=== PATIENT | male | born 1955 | race Caucasian/White ===

== ENCOUNTER 2019-03-23 08:43 | Day surgery (SDC) | payer BC, MEDICARE ==
[2019-03-17 17:48] VITALS: BMI 31.3
[~2019-03-23 08:43] MED LIST: DEXAMETHASONE SOD PHOSPHATE 10 MG/ML 1 ML VIAL IV ONE; LIDOCAINE 1% 20 ML VIAL (10MG/ML) FOR IV START INTRADERMA PRN; ONDANSETRON 4 MG/2 ML VIAL IVP ONE; SCOPOLAMINE 1.5MG/72HR PATCH TRANSDERM ONE
[2019-03-23] MEDS ORDERED: MIDAZOLAM (PF) 2 MG/2 ML VIAL IV ONE (09:15)
[2019-03-23] MEDS: LACTATED RINGERS 1,000 ML IV SCH ×2 (09:35→16:21)
--- NOTE | 2019-03-23 11:23 | P.ANPRN ---
Procedure Note - Anesthesia - Nerve Block Performed Left Adductor Canal Time Out Performed: Yes Date of Procedure: 03/23/19 Procedure Start Time: 09:42 Procedure Stop Time: 09:46 Location of Patient Procedure: PreOp Indication: Acute Post-Operative Pain, Requested by Surgeon Specifically requested for management of pain by DrCorby: Juanito Myers Sedation Type: Sedate with meaningful contact maintained Preparation: Sterile Prep Position: Supine Catheter: None Needle Types: Pajunk Needle Gauge: 20 Ultrasound used to visualize needle placement: Yes Ultrasound used to observe medication spread: Yes (local spread) Injectate: Other (see comment) Adjunct: Epinephrine (see comment for dilution ratio) (0.5% Ropi with 2% lidocaine with epi [id number] 50/50 mixture 15cc total) Blood Aspirated: No Pain Paresthesia on Injection Noted: No Resistance on Injection: Normal Image Stored and Saved: Yes Events: Uneventful and Well Tolerated Left Popliteal Single Time Out Performed: Yes Date of Procedure: 03/23/19 Procedure Start Time: 09:47 Procedure Stop Time: 09:51 Location of Patient Procedure: PreOp Indication: Acute Post-Operative Pain, Requested by Surgeon Specifically requested for management of pain by DrCorby: Juanito Myers Sedation Type: Sedate with meaningful contact maintained Preparation: Sterile Prep Position: Supine Catheter: None Needle Types: Pajunk Needle Gauge: 20 Ultrasound used to visualize needle placement: Yes Ultrasound used to observe medication spread: Yes (local spread) Injectate: Other (see comment) Adjunct: Epinephrine (see comment for dilution ratio) (0.5% Ropi with 2% lidocaine with epi [id number] 50/50 mixture 15cc total) Blood Aspirated: No Pain Paresthesia on Injection Noted: No Resistance on Injection: Normal Image Stored and Saved: Yes Events: Uneventful and Well Tolerated
[2019-03-23] MEDS ORDERED: LIDOCAINE 1% INJ 10MG/ML (20 ML MDV) ONE (11:29)
[2019-03-23] MEDS ORDERED: MIDAZOLAM 2 MG/2 ML VIAL ONE (11:29)
[2019-03-23] MEDS ORDERED: HYDROmorphone (PF) 1 MG/ML ONE (11:29)
[2019-03-23] MEDS ORDERED: ESMOLOL 100 MG/10 ML VIAL ONE (11:29)
[2019-03-23] MEDS ORDERED: SUCCINYLCHOLINE CHLORIDE 100 MG/5 ML SYR IV ONE (11:29)
[2019-03-23] MEDS ORDERED: ROPIVACAINE 5 MG/ML 30 ML VIAL ONE (11:29)
[2019-03-23] MEDS ORDERED: LIDOCAINE 2%-EPI 1:100,000 20 ML VIAL ONE (11:29)
[2019-03-23] MEDS ORDERED: PROPOFOL 10 MG/ML 20 ML VIAL IV ONE (11:29)
[2019-03-23] MEDS ORDERED: fentaNYL (PF) 50 MCG/ML 2 ML AMP ONE (11:29)
[2019-03-23] MEDS ORDERED: LACTATED RINGERS 1,000 ML IV ONE (13:05)
--- NOTE | 2019-03-23 14:47 | XR ---
Limited left ankle HISTORY: Subtalar joint arthrodesis 6 intraoperative C-arm images document the procedure.
--- NOTE | 2019-03-23 14:48 | FL ---
Fluoroscopy HISTORY: Subtalar joint arthrodesis 3 minutes 27 seconds fluoroscopy time supplied to the referring clinician. 6 intraoperative C-arm im ages document the procedure. See dictated report from orthopedic surgery.
[2019-03-23] MEDS ORDERED: HYDROcodone/APAP 5-325MG 1 EACH TAB PO PRN (15:25)
[2019-03-23] MEDS ORDERED: hydrOXYzine PAMOATE 25 MG CAP PO PRN (15:25)
[2019-03-23] MEDS ORDERED: HYDROmorphone 0.5 MG/0.5 ML SYRINGE IVP PRN ×3 (15:25)
[2019-03-23] MEDS ORDERED: SENNOSIDES-DOCUSATE SODIUM 1 EACH TAB PO PRN (15:25)
[2019-03-23] MEDS ORDERED: ONDANSETRON 4 MG/2 ML VIAL IVP PRN (15:25)
[2019-03-23] MEDS: HYDROmorphone 0.5 MG/0.5 ML SYRINGE IVP PRN ×2 (16:07→16:18)
[2019-03-23 17:14] LABS: Basophils % (A) 0 %; Eosinophils % (A) 0 %; HCT 44.4 % (39.0-53.0); HGB 14.9 gm/dL (13.0-17.5); Lymphocytes # (A) 0.7 k/uL (1.0-4.8); Lymphocytes % (A) 8 %; MCH 30.6 pg (25.0-35.0); MCHC 33.7 g/dL (31.0-37.0); MCV 90.9 fL (80.0-100.0); Mean Platelet Volume 6.7; Monocytes # (A) 0.2 k/uL (0-1.0); Monocytes % (A) 2 %; Neutrophils # (A) 7.9 k/uL (1.3-7.7); Neutrophils % (A) 89 %; Platelet Count 221 k/uL (150-450); RBC 4.88 m/uL (4.30-5.90); RDW 15.8 % (11.5-15.5)
[2019-03-24] MEDS: LACTATED RINGERS 1,000 ML IV SCH ×3 (01:49→08:09)
--- NOTE | 2019-03-24 06:45 | OP ---
OPERATIVE REPORT DATE OF SURGERY: 03/23/2019. PREOPERATIVE DIAGNOSES: 1. Left stage IIB adult acquired flatfoot with greater than 40% uncoverage of the talar head. 2. Left talonavicular joint arthritis. 3. Left hypermobile hallux valgus. 4. Left global Achilles tendon contracture. POSTOPERATIVE DIAGNOSES: 1. Left stage IIB adult acquired flatfoot with greater than 40% uncoverage of the talar head. 2. Left talonavicular joint arthritis. 3. Left hypermobile hallux valgus. 4. Left global Achilles tendon contracture. PROCEDURE: 1. Correction of left adult acquired flatfoot deformity with double arthrodesis (subtalar and talonavicular fusion). 2. First tarsometatarsal joint arthrodesis. 3. Correction of hallux valgus with left modified Booker procedure. 4. Left percutaneous triple hemisection tendo-Achilles lengthening. 5. Application of short-leg splint by physician. SURGEON: Dr. Juanito Myers. WOOD FURNITURE ASSEMBLER: JERAD Webster (JERAD Webster, was required as a skilled assistant store leader for patient positioning, surgical exposure, retraction, placement of hardware, closure of wounds and application of splint). ANESTHESIA: General plus popliteal and saphenous nerve block. FLUIDS: 1200 mL crystalloid. BLOOD LOSS: 50 mL. TOURNIQUET TIME: 120 minutes. INDICATION: The patient is a very pleasant, previously healthy 63-year-old male who had a flexible adult acquired flatfoot deformity that presented to my office with increasing pain and failure of nonsurgical treatment. His x-rays showed significant deformity with greater than 40% uncoverage of the talar head on the AP view and on the lateral view it showed collapse of the longitudinal arch and dorsal osteophytes over the talonavicular joint. Since he had failed over 6 months of nonsurgical treatment including activity modification, bracing, orthotics and anti-inflammatory pain medications, I think that it was reasonable to proceed with surgery. We discussed different surgical options including joint sparing procedures with osteotomies and tendon transfers versus correction with fusion. Due to the patient's age, degree of deformity and degenerative changes within the talonavicular joint, my recommendation was to perform a double arthrodesis of the hind foot to include the subtalar and talonavicular joints and to correct his bunion with a first TMT fusion and modified Booker procedure. We also discussed that by fusing the first ray it would help to prevent residual supination following correction of the flatfoot. We also discussed the need to perform a percutaneous tendo-Achilles lengthening. We discussed potential risks and complications of surgery including but not limited to risk of anesthesia, superficial infection, deep infection, delayed wound healing, nonunion, malunion, over correction of the deformity, under correction of the deformity, recurrence of the deformity, DVT, PE, other medical complications, generalized dissatisfaction with surgery, and possibly loss of life or limb. The patient and his understand while these are the most common complications other less common complications are possible. They provided their verbal and written consent to go forward with surgery. PROCEDURE: The patient was identified in the preoperative holding and the correct left foot was marked with my initials. I reviewed the consent form with the patient and his and all their questions were answered. A popliteal and saphenous nerve block was placed by Anesthesia. The patient was then brought back to the operating room. He was positioned on the OR table where a general anesthetic and preoperative antibiotics were given. A tourniquet was applied to the proximal aspect of the left leg. The left leg had a bump placed under the buttock internally rotating the leg to neutral. A ramp was placed on the left leg to facilitate imaging. The left leg was then prepped and draped in the standard sterile fashion. Prior to starting surgery, a time-out was performed identifying the correct patient, operative extremity, and procedure. The patient's leg was then elevated, exsanguinated with an Esmarch bandage and the tourniquet was inflated to 250 mmHg. I began by performing a percutaneous Buchanan tendo-Achilles lengthening. Stab incisions were made, 2 cm increments starting just proximal to the Achilles insertion on the posterior tuberosity of the calcaneus. The medial 50% of the Achilles tendon was sharply released through the proximal and distal wounds and the lateral 50% of the tendon was released through the middle incision. Following the triple hemisection, a gentle dorsiflexion force was applied to the ankle and there was both an audible and palpable pop as the Achilles tendon lengthened. Immediately upon lengthening the Achilles tendon, there was an increase in dorsiflexion. The Achilles tendon was then palpated and was found to be intact. I then approached the subtalar joint through a standard sinus tarsi incision. Incision was marked off from the tip of the fibula extending to the base of the 4th metatarsal. Skin incision was made with a scalpel. Dissection was carried down carefully through the subcutaneous tissue. The fat through the sinus tarsi was sharply debrided. The peroneal tendons and the sheath were retracted plantarly. The capsule of the subtalar joint was opened. K-wires were placed in the talus and calcaneus and a distractor was applied opening the subtalar joint. The articular cartilage was then removed with a series of osteotomes and curettes taking cartilage from both the posterior and middle facets. The joint was thoroughly irrigated. The joint surfaces were then perforated with a bur down to bleeding cancellous bone. A 2.5 mm drill bit was used to perforate the subchondral bone to facilitate fusion. Attention was then turned to the talonavicular joint. A dorsal incision was marked out starting at the neck of the talus and extended distally over the dorsal foot to the middle of the first metatarsal. Skin incision was made with a scalpel and dissection was carried down carefully through the subcutaneous tissue with tenotomy scissors. The joint capsule of the talonavicular joint was opened and the joint was exposed. All of the articular cartilage from the talar head and navicular were removed with osteotomes and a curette. The joint was thoroughly irrigated and all the cartilage remnants were removed. A 2.0 mm drill bit was used to thoroughly fenestrate the talar head and navicular to facilitate fusion. At this point, the joint was positioned for fusion. The lamina clinical research analyst was placed and gently opened nicely correcting the deformity. A 625 K-wire was driven to the plantar aspect of the anterior process of the calcaneus and as the reduction was held into the talar body. Fluoroscopy was used to verify reduction. On the lateral view, talar declination had been maintained and Meary's line was intact. On the AP view, the lateral border of the talus appeared to be parallel and at the level of the medial border of the anterior process of the calcaneus. At this point, the guidewires were placed through the plantar aspect of the heel up into the talar body with the more lateral wire aimed at the posterior body and the more medial wire pointed toward the neck body junction. The wires were correct using orthogonal fluoroscopic images and partially-threaded cannulated screws were placed generating excellent compression across the joint. Attention was then turned to the talonavicular joint. The joint was reduced with the navicular completely covering the talar head and the Meary's line intact on the AP view. Once the joint was reduced, a guide pin for a 5.5 mm partially- threaded cannulated screw was placed through the medial tuberosity of the navicular up into the talar head. A depth gauge was used and an appropriately length partially threaded 5.5 mm screw was placed across the talonavicular joint generating excellent compression. A 4.0 mm cannulated screw was placed across the lateral aspect of the talonavicular joint to generate further compression across the lateral portion of the joint. Attention was then turned to the first ray. There was still significant hypermobility and residual supination. The first tarsometatarsal joint was exposed and articular cartilage was removed both from the base of the first metatarsal and medial cuneiform. I took care to remove bone all the way to the plantar aspect of the joint to prevent inadvertent dorsiflexion malunion of the joint. Distally, a lateral release of the capsule and adductor tendon was performed through a first webspace incision completing the modified Booker portion of the procedure to correct the hallux valgus. The intermetatarsal angle was closed down until the sesamoids were reduced. The joint was held with a peripherally placed 0.0625 K-wire. I then proceeded to place solid screws in compression across the joint. A retrograde screw was placed first. A bur was used to create a pocket hole in the dorsal aspect of the first metatarsal and a 3.5 mm drill bit was used to create a guiding hole in the base of the proximal phalanx. A 2.5 mm drill bit was used to create a threaded hole in the medial cuneiform. A fully threaded 3.5 mm screw was placed across the joint generating excellent compression. I then placed a non lag 3.5 mm screw from the dorsal lateral aspect of the cuneiform into the proximal lateral base of the first metatarsal. The first ray appeared to be stable with no residual hypermobility. I elected to not place an intermetatarsal screw. Distally, an incision was made over the medial eminence of the first MTP joint. The capsule was opened and a small spur was taken off the dorsal medial aspect of the first metatarsal. A small amount of capsule was removed and then imbricated to further close down the hallux valgus deformity. Final fluoroscopic images were taken. All wounds were thoroughly irrigated and closed in layers. Sterile dressings were applied followed by well-padded bulky Goldstein splint. The patient was woken from his anesthetic, transferred from the OR table to a gurney and brought to recovery, having tolerated procedure well. MMODL / IJN: [id number] /
[2019-03-24 07:45] VITALS: BP 117/69
[2019-03-24] MEDS: HYDROcodone/APAP 5-325MG 1 EACH TAB PO PRN ×2 (08:11→14:06)
[2019-03-24] MEDS ORDERED: ENOXAPARIN 40 MG/0.4 ML SYRINGE SQ SCH (09:00)
--- NOTE | 2019-03-24 09:16 | P.PN ---
Subjective Progress Note Date: 03/24/19 This patient is an otherwise healthy 63 year old male that has been followed by Dr. Myers in the office for his acquired flatfoot deformity. He failed nonsurgical treatment and requested surgery. Patient underwent a subtalar and talonavicular fusion, first tarsometatarsal joint arthrodesis, and percutaneous tendo-Achilles lengthening on 03/23/[address] Myers. Today is post-operative day #1. The patient states he is doing well currently. He states he was nauseated last night, and vomited his dinner. Although, this subsided overnight. He tolerated his breakfast well without any issues. He state s he pain is currently well controlled. He has not yet been up with therapy. He has not had a bowel movement post-operatively, he denies abdominal pain. He plans on discharging home. He denies chest pain, shortness of breath, fevers, chills. Vital signs stable. Objective - Vital Signs Vital signs: Vital Signs Temp 98.5 F 03/24/19 07:44 Pulse 82 03/24/19 07:44 Resp 17 03/24/19 07:44 BP 117/69 03/24/19 07:44 Pulse Ox 96 03/24/19 07:44 Intake & Output 03/23/19 03/24/19 03/24/19 18:59 06:59 18:59 Intake Total 1970 480 Output Total 50 300 Balance 1920 180 Intake: IV 1970 Oral 480 Output: Urine 300 Estimated Blood Loss 50 Other: Voiding Method Urinal - Exam On examination, the patient is lying in bed in no acute distress. The patient is alert and oriented 3. On inspection of the left lower extremity, there is a bulky Goldstein splint in place. The splint is clean, dry, and intact. The left toes are warm and well perfused, with capillary refill less than 2 seconds. The patient is able to wiggle his left toes without difficulty. Sensation is intact to light touch of the left lower extremity. Neurovascular is intact of the left lower extremity. Right lower extremity compression cuff in place. The right calf is soft and nontender. Vital signs stable. - Labs CBC & Chem 7: 03/23/19 16:54 Labs: Abnormal Lab Results - Last 24 Hours (Table) 03/23/19 03/23/19 Range/Units 16:54 16:54 RDW 15.8 H (11.5-15.5) % Neutrophils # 7.9 H (1.3-7.7) k/uL Lymphocytes # 0.7 L (1.0-4.8) k/uL Vitamin D 25-Hydroxy 28.0 L (30.0-100.0) ng/mL Assessment and Plan Assessment: Acquired flat foot status-post subtalar and talonavicular fusion, first tarso metatarsal joint arthrodesis, percutaneous tendo-Achilles lengthening on 03/23/[address] Myers. Postoperative day #1. Plan: - Strict nonweightbearing of the left lower extremity. Ice and elevate the left lower extremity to decrease pain and swelling. - Physical therapy for gait and balance training. - Continue pain management. Decrease use of IV Dilaudid as tolerated. - Lovenox while he is inpatient for anticoagulation, aspirin 325 mg at discharge. - 2 doses of postoperative antibiotics complete. - Anticipate discharge home in the next [address] Patient discussed with Dr. Myers.
[2019-03-24 14:09] VITALS: PULSE 80; RESP 16; TEMP 97.9
--- NOTE | 2019-03-24 17:01 | P.DS ---
Providers Expected date of discharge: 03/24/19 Attending physician: Juanito Myers Primary care physician: [facility] Course: This is an 63-year-old male who is admitted to [facility] after undergoing an elective surgery on 03/23/19. Patient has been followed by Dr. Myers in the office for long-standing issues with his left foot. He failed nonsurgical treatment for his acquired flatfoot deformity, and requested surgery. The patient underwent a subtalar and talonavicular joint fusion, first tarsometatarsal joint arthrodesis, percutaneous tendo-Achilles and then on 03/23/[address] Myers. The procedure was performed without complication or sequelae. The patient is doing fairly well postoperatively. Vital signs and labs are stable on postoperative day #1. Patient was examined bedside today. Patient states he is doing well. He was nauseated last night, although this has since resolved. He has tolerated his breakfast well without nausea or vomiting. Per physical therapy, he was up ambulating and transferring with crutches and a walker without issue. Per therapy, he did well. He has not had a bowel movement postoperative, although denies abdominal pain. He denies chest pain, shortness breath, nausea, vomiting, fevers, chills. Vital signs stable. On examination, the patient is sitting up in bed in no apparent distress. He is alert and oriented 3. Breathing appears nonlabored. On inspection of the left lower extremity, there is a clean, dry, intact bulky Goldstein splint in place. The visible portion of the toes are warm and well-perfused with brisk capillary refill. The patient is able to wiggle toes without pain or issue. Sensation is intact to light touch of the toes. Compression cuff is in place on the right leg, right calf is soft and nontender to palpation. Vital signs stable. Patient is discharged home in good condition. Patient will follow-up with Dr. Myers in the office in 2 weeks. Please see med rec for accurate list of discharge medications. Patient Condition at Discharge: Fair Plan - Discharge Summary Discharge Rx Participant: Yes New Discharge Prescriptions: New Aspirin 325 mg PO DAILY #14 tab Docusate [Colace] 100 mg PO BID #60 capsule Hydrocodone/Acetaminophen [[place] 5-325] 1 - 2 tab PO Q4-6H PRN #40 tab PRN Reason: Pain Calcium Carbonate [Tums] 500 mg PO QID #90 chewable Cholecalciferol (Vitamin D3) [Vitamin D3] 2,000 unit PO DAILY #30 capsule No Action Multivitamins, Thera [Multivitamin (formulary)] 1 tab PO DAILY Atorvastatin [Lipitor] 10 mg PO DAILY Ranitidine HCl [Zantac] 150 mg PO BID Discharge Medication List Atorvastatin [Lipitor] 10 mg PO DAILY 03/17/19 [History] Multivitamins, Thera [Multivitamin (formulary)] 1 tab PO DAILY 03/17/19 [History] Ranitidine HCl [Zantac] 150 mg PO BID 03/17/19 [History] Aspirin 325 mg PO DAILY #14 tab 03/24/19 [Rx] Calcium Carbonate [Tums] 500 mg PO QID #90 chewable 03/24/19 [Rx] Cholecalciferol (Vitamin D3) [Vitamin D3] 2,000 unit PO DAILY #30 capsule 03/24/19 [Rx] Docusate [Colace] 100 mg PO BID #60 capsule 03/24/19 [Rx] Hydrocodone/Acetaminophen [[place] 5-325] 1 - 2 tab PO Q4-6H PRN #40 tab 03/24/19 [Rx] Follow up Appointment(s)/Referral(s): Juanito Myers MD [Medical Doctor] - 2 Weeks Activity/Diet/Wound Care/Special Instructions: -Strict non-weight bearing on your operative leg. Do not remove your splint; Keep splint clean, dry, and intact -Use crutches, knee scooter, or a walker to ambulate after surgery. -Elevate and ice operative leg to help reduce swelling and control pain. -Take pain medications as prescribed. Take Colace as a stool softener. Take aspirin as prescribed for blood clot prevention. -Follow-up appointment with Dr. Myers in the office in 2 weeks. -Call the office with any questions or concerns, Discharge Disposition: HOME SELF-CARE
== END 2019-03-24 17:36 | disposition home or self-care (01) ==
LOC: OR 08:43 → 4SSUR 15:57 → OR 03-24 17:36
PROVIDERS: ATTEND Orthopaedic Surgery
DX: M21.42 Flat foot [pes planus] (acquired), left foot (principal); M19.072 Primary osteoarthritis, left ankle and foot; M20.12 Hallux valgus (acquired), left foot; M67.02 Short Achilles tendon (acquired), left ankle; M21.6X2 Other acquired deformities of left foot; E78.5 Hyperlipidemia, unspecified; H91.90 Unspecified hearing loss, unspecified ear; K21.9 Gastro-esophageal reflux disease without esophagitis; Z79.899 Other long term (current) drug therapy; Z79.1 Long term (current) use of non-steroidal anti-inflammatories (NSAID); Z97.3 Presence of spectacles and contact lenses; Z83.3 Family history of diabetes mellitus
CPT/HCPCS: 28725; 28740; 28292; 94760; 97161; 64447; 64450; 76942; 85025; 82306; 73600; C1713; J2250 ×2; J1100; J0690 ×2; J2405; J2001; J1650; J3010; J1170 ×3; J2795; J0330; J2704; 64445

== ENCOUNTER 2021-04-25 07:40 | Day surgery (SDC) | payer BC, MEDICARE ==
[2021-04-24 12:07] VITALS: BMI 30.4
[~2021-04-25 07:40] MED LIST changes: -DEXAMETHASONE SOD PHOSPHATE 10 MG/ML 1 ML VIAL IV ONE; +DEXAMETHASONE SOD PHOSPHATE 4 MG/ML 1 ML VIAL IV ONE; +HYDROmorphone 0.5 MG/0.5 ML SYRINGE IVP PRN; +LACTATED RINGERS 1,000 ML IV SCH; -LIDOCAINE 1% 20 ML VIAL (10MG/ML) FOR IV START INTRADERMA PRN; -SCOPOLAMINE 1.5MG/72HR PATCH TRANSDERM ONE
[2021-04-25] MEDS ORDERED: MIDAZOLAM 2 MG/2 ML VIAL IVP ONE (08:42)
[2021-04-25] MEDS ORDERED: DEXAMETHASONE SOD PHOSPHATE 4 MG/ML 1 ML VIAL ONE (09:35)
[2021-04-25] MEDS ORDERED: KETAMINE 10 MG/ML 20 ML VIAL ONE (09:35)
[2021-04-25] MEDS ORDERED: ROPIVACAINE 5 MG/ML 30 ML VIAL ONE (09:35)
[2021-04-25] MEDS ORDERED: fentaNYL (PF) 50 MCG/ML 2 ML AMP ONE (09:35)
[2021-04-25] MEDS ORDERED: PROPOFOL 10 MG/ML 20 ML VIAL IV ONE (09:35)
[2021-04-25] MEDS ORDERED: MIDAZOLAM 2 MG/2 ML VIAL ONE (09:35)
[2021-04-25] MEDS ORDERED: SUCCINYLCHOLINE CHLORIDE 100 MG/5 ML SYR IV ONE (09:35)
[2021-04-25] MEDS ORDERED: LIDOCAINE 1% INJ 10MG/ML (20 ML MDV) ONE (09:35)
[2021-04-25 11:16] VITALS: TEMP 96.9
--- NOTE | 2021-04-25 11:20 | P.OP ---
Date of Procedure: 04/25/21 Preoperative Diagnosis: 1. Hallux valgus right foot 2. Hallux rigidus right foot Postoperative Diagnosis: 1. Same 2. Same Procedure(s) Performed: First metatarsal phalangeal joint arthrodesis right foot Implants: Arthrex MaxForce 1st MPJ arthrodesis plate Intellione 1.5cc Augment Anesthesia: GETA Surgeon: Chavez Amin Estimated Blood Loss (ml): 2 Pathology: none sent Condition: stable Disposition: PACU Indications for Procedure: Painful hallux valgus deformity with associated degenerative changes. Description of Procedure: Prior to the patient being brought to the operating room, anesthesia administered a nerve block on the right lower extremity utilizing ultrasonic guidance in place and the patient under mild sedation. Then the patient was brought into the operating room and placed on table supine position. Timeout was taken to confirm correct patient identifiers, correct surgery, and correct site of surgery. When the room was in agreement the patient was induced and placed under general anesthesia. A well-padded tourniquet was placed on the right ankle. A bump was placed underneath the right hip to internally rotate the right leg. The right leg was then prepped and draped usual manner. The leg was exsanguinated with an Esmarch bandage and the tourniquet inflated to 250 mmHg. Attention directed over the dorsomedial aspect of the first metatarsal phalangeal joint where a linear incision was made between the extensor hallucis longus tendon and the neurovascular structures. Incision was deepened to the subcutaneous layer careful to identify, avoid, and retract any neurovascular structures and cauterize any bleeding vessels. Dissection was then carried down to the joint capsule. Incision was made to the capsule and periosteum medial to the extensor hallucis longus tendon. Subperiosteal dissection was performed to reflect the soft tissue away from the base of the proximal phalanx and head of the first metatarsal. A guidewire was inserted centrally into the first metatarsal head and advanced into medullary canal parallel to the long axis of the first metatarsal. A hole saw was used to remove excessive bone on the periphery of the first metatarsal head. A sagittal saw was used to remove any remaining bone fragments. All roughened edges of bone were removed and smoothed. Then a concave reamer was inserted over the guidewire and used to remove the cartilage and subchondral bone of the first metatarsal head. Once completed the guidewire was removed and utilized to fenestrate the first metatarsal head. The guidewire was then inserted centrally on the articular surface of the base of the proximal phalanx. It was advanced into medullary canal parallel to the long axis. The convex reamer was then placed over the guidewire and used to remove the articular cartilage and subchondral bone. The guidewire was removed and used to fenestrate the surface also. With the joint distracted the area was thoroughly irrigated with normal saline. 1.5 mL of augment was then mixed on the back table and injected between the arthrodesis segments. An Arthrex MaxForce first metatarsal phalangeal joint arthrodesis late was positioned over the arthrodesis site. It was temporarily fixated and the position of the plate as well as the arthrodesis position was adjusted under fluoroscopy. Next the distal locking screws were placed through the plate into the proximal phalanx. Then the drill hole was made in the compression area of the plate. A compression device was inserted and then turned to provide significant compression across the arthrodesis site. Once that was positioned the temporary fixation was moved into a different hole to lock it in that position. Compression device was removed and another screw was inserted into the proximal portion of the compression site with eccentric drilling so that when the screw was inserted also compressed further. A proximal locking screw was then placed and then a nonlocking cortical screw was inserted at the distal portion of the oblong hole for the first metatarsal head. Final fluoroscopic imaging showed excellent compression across the arthrodesis site as well as acceptable alignment of the great toe. The wound is then thoroughly irrigated with normal saline. The capsule was closed with 0 Vicryl. Subcutaneous closure done with 4-0 Monocryl. Skin closure done with 4-0 Stratafix in a running subcuticular manner. Dermal glue was applied and allowed to dry. Steri-Strips are placed across incision. An Arthrex jumpstart dressing was placed over the incision and then a dry sterile dressing applied to the right foot. The tourniquet was released and capillary refill return to all digits on the right foot. Then a well-padded, well molded plaster posterior mold/sugar tong splint was applied to the right leg. The ankle and foot were held in neutral position as the splint dried. Once dried anesthesia was reversed and the patient was transferred to the recovery room with vital signs stable.
[2021-04-25 12:10] VITALS: BP 138/89; PULSE 76; RESP 14
--- NOTE | 2021-04-27 19:32 | P.ANPRN ---
Procedure Note - Anesthesia - Nerve Block Performed Right Popliteal Single Time Out Performed: Yes Date of Procedure: 04/25/21 Procedure Start Time: 08:41 Procedure Stop Time: 08:46 Location of Patient: PreOp Indication: Acute Post-Operative Pain, Requested by Surgeon Sedation Type: Sedate with meaningful contact maintained Preparation: Sterile Prep Position: Left Lateral Needle Types: Pajunk Needle Gauge: 21 Ultrasound used to visualize needle placement: Yes Ultrasound used to observe medication spread: Yes Blood Aspirated: No Pain Paresthesia on Injection Noted: No Resistance on Injection: Normal Image Stored and Saved: Yes Events: Uneventful and Well Tolerated (ropi .5% 20cc plus dexamethasone 4mg)
--- NOTE | 2021-04-27 19:33 | P.ANPRN ---
Procedure Note - Anesthesia - Nerve Block Performed Right Adductor Canal Single Time Out Performed: Yes Date of Procedure: 04/25/21 Procedure Start Time: 08:47 Procedure Stop Time: 08:51 Location of Patient: PreOp Indication: Acute Post-Operative Pain, Requested by Surgeon Sedation Type: Sedate with meaningful contact maintained Preparation: Sterile Prep Position: Supine Needle Types: Pajunk Needle Gauge: 21 Ultrasound used to visualize needle placement: Yes Ultrasound used to observe medication spread: Yes Blood Aspirated: No Pain Paresthesia on Injection Noted: No Resistance on Injection: Normal Image Stored and Saved: Yes Events: Uneventful and Well Tolerated (ropi .5% 20cc plus dexamethasone 4mg)
== END 2021-04-25 12:51 | disposition home or self-care (01) ==
LOC: OR 07:40
PROVIDERS: ATTEND Podiatrist
DX: M20.11 Hallux valgus (acquired), right foot (principal); M20.21 Hallux rigidus, right foot
CPT/HCPCS: 64447; 64445; 20680; 76942; C1713 ×2; J2250; J1100; J0690; J2405; J2001; J3010; J2795; J0330; J2704